=== PATIENT | female | born 1980 | race Asian ===

== ENCOUNTER 2017-09-25 18:36 | Emergency (ER) | payer OTHER ==
--- NOTE | 2017-09-25 19:35 | ED ---
Deejay Elias Julia, scribed for Renan France MD on 09/25/17 at 1925 . Throat Pain/Nasal Congestion - HPI Summary HPI Summary: This patient is a 37 year old F presenting to [facility] with a chief complaint of a worsening swollen ulcer on the left side of her mouth after burning her mouth on hot food three days ago. Patient additionally c/o swelling described as lumps under her left mandible area. The patient rates the pain 6/10 in severity. Patient states bleeding occurs when brushing teeth. - History of Current Complaint Chief Complaint: EDDentalPain Time Seen by Provider: 09/25/17 19:14 Hx Obtained From: Patient Onset/Duration: Lasting Days Associated Signs And Symptoms: Positive: Negative Cough: None - Allergies/Home Medications Allergies/Adverse Reactions: Allergies Allergy/AdvReac Type Severity Reaction Status Date / Time No Known Allergies Allergy Verified 09/25/17 18:43 PMH/Surg Hx/FS Hx/Imm Hx Sensory History: Reports: Hx Contacts or Glasses EENT History: Denies: Hx Deafness Infectious Disease History: No Infectious Disease History: Denies: Traveled Outside the [place] in Last 30 Days - Family History Known Family History: Positive: Hypertension - Social History Alcohol Use: Occasionally Substance Use Type: Reports: None Smoking Status (MU): Never Smoked Tobacco Review of Systems Constitutional: Negative Positive: Other - swelling and ulcer to left mouth All Other Systems Reviewed And Are Negative: Yes Physical Exam - Summary Physical Exam Summary: Appearance: The patient is well-nourished in no acute distress and in no acute pain. Skin: The skin is warm and dry and skin color reflects adequate perfusion. HEENT: The head is normocephalic and atraumatic. The pupils are equal and reactive. The conjunctivae are clear and without drainage. Nares are patent and without drainage. Mouth reveals moist mucous membranes and the throat is without erythema and exudate. The external ears are intact. The ear canals are patent and without drainage. The tympanic membranes are intact. There is a burn wound on the lingual side of right upper gingival area. There is healthy appearing granulation tissue here, with minimal local swelling. I do not feel any right sided submandibular adenopathy, though patient thinks she feels some swelling and pain there. Neck: the neck is supple with full range of motion and non-tender. There are no carotid bruits. There is no neck vein distension. Respiratory: Chest is non-tender. Lungs are clear to auscultation and breath sounds are symmetrical and equal. Cardiovascular: Heart is regular rate and rhythm. There is no murmur or rub auscultated. There is no peripheral edema and pulses are symmetrical and equal. Abdomen: The abdomen is soft and non-tender. There are normal bowel sounds heard in all four quadrants and there is no organomegaly palpated. Musculoskeletal: There is no back tenderness noted. Extremities are non-tender with full range of motion. There is good capillary refill. There is no peripheral edema or calf tenderness elicited. Neurological: Patient is alert and oriented to person, place and time. The patient has symmetrical motor strength in all four extremities. Cranial nerves are grossly intact. Deep tendon reflexes are symmetrical and equal in all four extremities. Psychiatric: The patient has an appropriate affect and does not exhibit any anxiety or depression. Triage Information Reviewed: Yes Vital Signs On Initial Exam: Initial Vitals Temp Pulse Resp BP Pulse Ox 98.3 F 79 14 111/50 99 09/25/17 18:44 09/25/17 18:44 09/25/17 18:44 09/25/17 18:44 09/25/17 18:44 Vital Signs Reviewed: Yes Diagnostics - Vital Signs Vital Signs Temp Pulse Resp BP Pulse Ox 09/25/17 18:44 98.3 F 79 14 111/50 99 - Laboratory Lab Statement: Any lab studies that have been ordered have been reviewed, and results considered in the medical decision making process. EENT Course/Dx - Diagnoses Provider Diagnoses: Burn of mouth Discharge - Sign-Out/Discharge Documenting (check all that apply): Discharge/Admit/Transfer - Discharge Plan Condition: Good Disposition: HOME Prescriptions: Penicillin VK 500 MG TAB(NF) [Penicillin VK 500 mg Tab] 500 mg PO QID #20 tab Referrals: [facility] [place] - [facility]ta[facility] FRAZIER [Primary Care Provider] - Additional Instructions: I think the wound in your mouth is healing well. Take the penicillin in case there is any infection brewing, though this is quite uncommon with oral rubio. Mouth injuries tend to heal quite quickly, within a week generally. Topical OTC anesthetic pastes can be helpful in managing pain. - Billing Disposition and Condition Condition: GOOD Disposition: HOME The documentation as recorded by the Deejay ramirez Julia accurately reflects the service I personally performed and the decisions made by me, Renan France MD.
[2017-09-25 19:49] VITALS: BP 112/81
== END 2017-09-25 19:46 | disposition home or self-care (01) ==
LOC: ED 18:36
DX: T28.0XXA Burn of mouth and pharynx, initial encounter (principal); X10.1XXA Contact with hot food, initial encounter; Y93.9 Activity, unspecified; Y92.9 Unspecified place or not applicable
CPT/HCPCS: 99282